=== PATIENT | female | born 1970 | race Caucasian/White ===

== ENCOUNTER 2017-07-13 14:27 | Emergency (ER) | payer MEDICAID ==
[~2017-07-13] VITALS: Ht 149.9 cm; Wt 61.2 kg
[~2017-07-13 14:27] MED LIST: AMBIEN 5 MG TABL5 M1 PO; AMITRIPTYLINE H25 M2; AMITRIPTYLINE H25 M2 PO; CIPRO500 MG PO; CLONAZEPAM 0.50.5 M1 PO; HYDROCODONE-AP1 EAC6 PO; KEPPRA 500 MG500 M1 PO; NEURONTIN600 MG PO; NORCO 5-325 TA1 EACH PO; SERTRALINE HCL50 MG PO; TRAZODONE HCL50 MG PO; VISTARIL 25 MG25 M1; ZOLOFT25 MG PO; ZOLOFT50 MG; ZOLOFT50 MG PO
[2017-07-13 15:11] LABS: URINE BILIRUBIN NEGATIVE (Negative); URINE BLOOD NEGATIVE (Negative); URINE CLARITY CLEAR; URINE COLOR YELLOW; URINE GLUCOSE-RANDOM NEGATIVE (Negative); URINE KETONES NEGATIVE (Negative); URINE LEUKOCYTES-REFLEX NEGATIVE (Negative); URINE NITRITE-REFLEX NEGATIVE (Negative); URINE PROTEIN NEGATIVE (Negative); URINE SPECIFIC GRAVITY 1.015 (1.005-1.030); URINE UROBILINOGEN 0.2 E.U./dl (0.2-1.0)
[2017-07-13 15:27] LABS: INFLUENZA A ANTIGEN None Detected (None Detect); INFLUENZA B ANTIGEN None Detected (None Detect)
[2017-07-13] MEDS ORDERED: TESSALON PERLE100 M1 PO (16:17)
[2017-07-13 16:40] VITALS: BP 119/76
== END 2017-07-13 16:41 | disposition home or self-care (01) ==
LOC: M.ERS 14:27
PROVIDERS: Emergency Medicine Emergency Medical Services
DX: J06.9 Acute upper respiratory infection, unspecified (principal); F41.9 Anxiety disorder, unspecified; F32.9 Major depressive disorder, single episode, unspecified; F17.210 Nicotine dependence, cigarettes, uncomplicated